=== PATIENT | female | born 1955 | race Caucasian/White ===

== ENCOUNTER 2020-11-16 09:54 | Emergency (ER) | payer MEDICARE ==
[2020-11-16 11:42] LABS: HEMOGLOBIN 13.9 gm/dl (12.3-15.3); RED BLOOD COUNT 4.69 M/UL (4.00-5.10); WHITE BLOOD COUNT 8.2 K/UL (4.5-11.0)
[2020-11-16 12:19] LABS: BUN/CREATININE RATIO 12 (0-10)
== END 2020-11-16 14:04 | disposition home or self-care (01) ==
LOC: ER1 09:54
PROVIDERS: Student in an Organized Health Care Education/Training Program
DX: R07.89 Other chest pain (principal); K21.9 Gastro-esophageal reflux disease without esophagitis; F17.200 Nicotine dependence, unspecified, uncomplicated
CPT/HCPCS: 71045; 80053; 82550; 82553; 83690; 83874; 84484; 85025; 85379; 93005; 99285

== ENCOUNTER → 2021-10-13 | Outpatient (CLI) | payer MEDICARE | LOC: KOH-I 08:00 | DX: Z87.891 Personal history of nicotine dependence (principal) | CPT/HCPCS: 71271 ==

== ENCOUNTER → 2021-10-16 | Outpatient (CLI) | payer MEDICARE ==
[~2021-10-16] VITALS: Ht 165.1 cm; Wt 91.6 kg
== END ==
LOC: EROP 13:02
DX: U07.1 COVID-19 (principal); Z23 Encounter for immunization
CPT/HCPCS: M0222; Q0222

== ENCOUNTER 2021-11-20 11:43 | Emergency (ER) | payer MEDICARE | END 2021-11-20 16:32 | disposition home or self-care (01) | LOC: ER1 11:43 | DX: S61.412A Laceration without foreign body of left hand, initial encounter (principal); Z85.3 Personal history of malignant neoplasm of breast; E03.9 Hypothyroidism, unspecified; F17.290 Nicotine dependence, other tobacco product, uncomplicated; Z88.0 Allergy status to penicillin; Z88.2 Allergy status to sulfonamides; W26.0XXA Contact with knife, initial encounter; Y92.009 Unspecified place in unspecified non-institutional (private) residence as the place of occurrence of the external cause | CPT/HCPCS: 99282 ==